=== PATIENT | male | born 1970 | race Caucasian/White ===

== ENCOUNTER 2019-04-27 11:21 | Outpatient (CLI) | payer OTHER, SELFPAY ==
[2019-04-27 11:38] LABS: Basophils Percent Auto 0.3 % (0.2-1.2); Eosinophils Absolute Auto 0.1 K/mm3 (0-0.3); Eosinophils Percent Auto 1.3 % (0-4.4); Lymphocytes Absolute Auto 1.57 K/mm3 (0.9-3.2); Lymphocytes Percent Auto 40.2 % (18.3-44.2); Mean Corpuscular HGB Conc 33.3 g/dl (32-36); Mean Corpuscular Hemoglobin 29.2 pg (26-34); Mean Corpuscular Volume 87.5 fl (80-100); Mean Platelet Volume 9.8 fl (7.4-10.4); Monocytes Absolute Auto 0.2 K/mm3 (0.1-0.6); Monocytes Percent Auto 6.1 % (2.6-8.5); Neutrophils Percent Auto 52.1 % (45.5-73.1); Platelet Count Result 150 k/mm3 (150-375); Red Blood Count 5.14 M/mm3 (4.6-6.20); Red Cell Distribution Width 12.8 % (11.5-14.5); White Blood Count 3.9 K/mm3 (4.5-10.0)
[2019-04-27 11:54] LABS: Alanine Aminotransferase 18 U/L (4-50); Albumin Level 4.8 g/dL (3.5-5.1); Alkaline Phosphatase 63 U/L (38-126); Aspartate Amino Transferase 26 U/L (17-59); Bilirubin,Total 1.7 mg/dL (0.2-1.3); Blood Urea Nitrogen 16 mg/dL (9-20); Calcium 9.7 mg/dL (8.4-10.2); Carbon Dioxide 31 mmol/L (22-30); Chloride 98 mmol/L (98-107); Cholesterol 195 mg/dL (0-200); Estimated Glomerular Filt Rate > 60; Glucose 93 mg/dL (75-110); HDL Direct 52 mg/dL; Potassium 4.3 mmol/L (3.4-5.0); Sodium 142 mmol/L (137-145); Triglycerides 94 mg/dL (<150)
[2019-04-27 12:10] LABS: LDL Cholesterol Direct 108 mg/dL
[2019-04-27 13:53] LABS: Prostate Specific Antigen 1.6 ng/mL (< OR = 4.0)
== END 2019-04-27 11:22 | disposition home or self-care (01) ==
PROVIDERS: PCP Family Medicine; Visit Provider Family Medicine
DX: Z12.5 Encounter for screening for malignant neoplasm of prostate (principal); K21.9 Gastro-esophageal reflux disease without esophagitis; D69.6 Thrombocytopenia, unspecified; E78.5 Hyperlipidemia, unspecified
CPT/HCPCS: 36415; 80053; 80061; 84153; 85025; G0103

== ENCOUNTER 2019-05-11 09:28 | Outpatient (CLI) | payer OTHER, SELFPAY ==
[2019-05-11 10:15] LABS: Hemoglobin 14.4 g/dL (14.0-18.0); Mean Corpuscular HGB Conc 34.3 g/dl (32-36); Mean Corpuscular Hemoglobin 29.6 pg (26-34); Mean Corpuscular Volume 86.4 fl (80-100); Mean Platelet Volume 9.6 fl (7.4-10.4); Platelet Count Result 145 k/mm3 (150-375); Red Blood Count 4.86 M/mm3 (4.6-6.20); Red Cell Distribution Width 12.6 % (11.5-14.5); White Blood Count 3.7 K/mm3 (4.5-10.0)
[2019-05-11 10:21] LABS: Alanine Aminotransferase 21 U/L (4-50); Albumin Level 4.3 g/dL (3.5-5.1); Alkaline Phosphatase 54 U/L (38-126); Aspartate Amino Transferase 25 U/L (17-59); Bilirubin,Total 1.2 mg/dL (0.2-1.3)
== END 2019-05-11 09:29 | disposition home or self-care (01) ==
LOC: ANHLAB 09:29
PROVIDERS: PCP Family Medicine; Visit Provider Physician Assistant Medical
DX: D64.9 Anemia, unspecified (principal); R17 Unspecified jaundice
CPT/HCPCS: 36415; 80076; 85027

== ENCOUNTER 2019-10-18 14:26 | Outpatient (CLI) | payer OTHER, SELFPAY ==
[2019-10-18 14:47] LABS: Basophils Percent Auto 0.4 % (0.2-1.2); Eosinophils Absolute Auto 0.1 K/mm3 (0-0.3); Eosinophils Percent Auto 1.2 % (0-4.4); Hematocrit 41.2 % (42.0-52.0); Hemoglobin 14.2 g/dL (14.0-18.0); Immature Granulocyte Absolute 0.02 K/mm3 (0.00-0.031); Immature Granulocyte Percent A 0.4 % (0-0.5); Lymphocytes Absolute Auto 1.46 K/mm3 (0.9-3.2); Lymphocytes Percent Auto 28.9 % (18.3-44.2); Mean Corpuscular HGB Conc 34.5 g/dl (32-36); Mean Corpuscular Hemoglobin 30.3 pg (26-34); Mean Platelet Volume 9.5 fl (7.4-10.4); Monocytes Absolute Auto 0.3 K/mm3 (0.1-0.6); Monocytes Percent Auto 5.9 % (2.6-8.5); Neutrophils Absolute Auto 3.2 K/mm3 (1.3-6.7); Neutrophils Percent Auto 63.2 % (45.5-73.1); Platelet Count Result 138 k/mm3 (150-375); Red Blood Count 4.68 M/mm3 (4.6-6.20); Red Cell Distribution Width 13.3 % (11.5-14.5); White Blood Count 5.1 K/mm3 (4.5-10.0)
[2019-10-18 15:01] LABS: Alanine Aminotransferase 16 U/L (4-50); Albumin Level 4.5 g/dL (3.5-5.1); Alkaline Phosphatase 59 U/L (38-126); Anion Gap 10.3 mmol/L (7-16); Aspartate Amino Transferase 27 U/L (17-59); Bilirubin,Total 1.7 mg/dL (0.2-1.3); Blood Urea Nitrogen 14 mg/dL (9-20); Calcium 9.2 mg/dL (8.4-10.2); Carbon Dioxide 27 mmol/L (22-30); Chloride 104 mmol/L (98-107); Estimated Glomerular Filt Rate > 60; Glucose 100 mg/dL (75-110); Potassium 4.3 mmol/L (3.4-5.0); Sodium 137 mmol/L (137-145)
== END 2019-10-18 14:27 | disposition home or self-care (01) ==
LOC: ANHLAB 14:27
PROVIDERS: PCP Family Medicine; Visit Provider Family Medicine
DX: D64.9 Anemia, unspecified (principal); F41.9 Anxiety disorder, unspecified
CPT/HCPCS: 36415; 80053; 84443; 85025

== ENCOUNTER 2020-04-27 13:31 | Outpatient (CLI) | payer OTHER, SELFPAY ==
[2020-04-27 13:51] LABS: Basophils Percent Auto 0.3 % (0.2-1.2); Eosinophils Absolute Auto 0.1 K/mm3 (0-0.3); Eosinophils Percent Auto 1.6 % (0-4.4); Hematocrit 41.5 % (42.0-52.0); Hemoglobin 14.6 g/dL (14.0-18.0); Immature Granulocyte Absolute 0.01 K/mm3 (0.00-0.031); Immature Granulocyte Percent A 0.3 % (0-0.5); Lymphocytes Percent Auto 33.7 % (18.3-44.2); Mean Corpuscular HGB Conc 35.2 g/dl (32-36); Mean Corpuscular Hemoglobin 30.4 pg (26-34); Mean Corpuscular Volume 86.5 fl (80-100); Mean Platelet Volume 9.4 fl (7.4-10.4); Monocytes Absolute Auto 0.3 K/mm3 (0.1-0.6); Monocytes Percent Auto 6.7 % (2.6-8.5); Neutrophils Absolute Auto 2.2 K/mm3 (1.3-6.7); Neutrophils Percent Auto 57.4 % (45.5-73.1); Platelet Count Result 130 k/mm3 (150-375); Red Cell Distribution Width 12.3 % (11.5-14.5); White Blood Count 3.9 K/mm3 (4.5-10.0)
[2020-04-27 14:05] LABS: Alanine Aminotransferase 16 U/L (4-50); Albumin Level 4.5 g/dL (3.5-5.1); Alkaline Phosphatase 52 U/L (38-126); Anion Gap 5 mmol/L (8-16); Aspartate Amino Transferase 28 U/L (17-59); Bilirubin,Total 1.4 mg/dL (0.2-1.3); Blood Urea Nitrogen 20 mg/dL (9-20); Calcium 9.4 mg/dL (8.4-10.2); Carbon Dioxide 31 mmol/L (22-30); Chloride 104 mmol/L (98-107); Estimated Glomerular Filt Rate > 60; Glucose 99 mg/dL (75-110); Potassium 4.5 mmol/L (3.4-5.0); Sodium 140 mmol/L (137-145)
[2020-04-27 14:34] LABS: Prostate Specific Antigen 0.9 ng/mL (< OR = 4.0)
== END 2020-04-27 13:32 | disposition home or self-care (01) ==
PROVIDERS: PCP Family Medicine; Visit Provider Family Medicine
DX: E78.5 Hyperlipidemia, unspecified (principal); D64.9 Anemia, unspecified
CPT/HCPCS: 36415; 80053; 84153; 85025; G0103

== ENCOUNTER 2021-05-01 08:49 | Outpatient (CLI) | payer OTHER, SELFPAY ==
[2021-05-01 09:16] LABS: Hematocrit 39.8 % (42.0-52.0); Hemoglobin 13.6 g/dL (14.0-18.0); Mean Corpuscular HGB Conc 34.2 g/dl (32-36); Mean Corpuscular Hemoglobin 29.4 pg (26-34); Mean Corpuscular Volume 86.1 fl (80-100); Mean Platelet Volume 9.4 fl (7.4-10.4); Platelet Count Result 164 k/mm3 (150-375); Red Blood Count 4.62 M/mm3 (4.6-6.20); Red Cell Distribution Width 13.2 % (11.5-14.5); White Blood Count 4.2 K/mm3 (4.5-10.0)
[2021-05-01 09:27] LABS: Anion Gap 8 mmol/L (8-16); Blood Urea Nitrogen 21 mg/dL (9-20); Carbon Dioxide 30 mmol/L (22-30); Chloride 104 mmol/L (98-107); Cholesterol 210 mg/dL (0-200); Estimated Glomerular Filt Rate > 60; Glucose 89 mg/dL (65-110); HDL Direct 56 mg/dL; Potassium 4.3 mmol/L (3.4-5.0); Sodium 142 mmol/L (137-145); Triglycerides 104 mg/dL (<150)
[2021-05-01 09:37] LABS: LDL Cholesterol Direct 103 mg/dL
[2021-05-01 09:57] LABS: Prostate Specific Antigen 0.9 ng/mL (< OR = 4.0)
[2021-05-01 13:16] LABS: Basophils Percent Auto 0.5 % (0.2-1.2); Eosinophils Absolute Auto 0.1 K/mm3 (0-0.3); Eosinophils Percent Auto 2.8 % (0-4.4); Immature Granulocyte Absolute 0.01 K/mm3 (0.00-0.031); Immature Granulocyte Percent A 0.2 % (0-0.5); Lymphocytes Absolute Auto 1.55 K/mm3 (0.9-3.2); Lymphocytes Percent Auto 36.6 % (18.3-44.2); Monocytes Absolute Auto 0.3 K/mm3 (0.1-0.6); Monocytes Percent Auto 6.9 % (2.6-8.5); Neutrophils Absolute Auto 2.2 K/mm3 (1.3-6.7)
== END 2021-05-01 08:50 | disposition home or self-care (01) ==
LOC: ANHLAB 08:51
PROVIDERS: PCP Family Medicine; Visit Provider Family Medicine
DX: Z12.5 Encounter for screening for malignant neoplasm of prostate (principal); I10 Essential (primary) hypertension; Z13.220 Encounter for screening for lipoid disorders; E78.5 Hyperlipidemia, unspecified; D64.9 Anemia, unspecified
CPT/HCPCS: 36415; 80048; 80061; 84153; 84443; 85025; 85027; G0103

== ENCOUNTER 2021-06-11 01:41 | Day surgery (SDC) | payer OTHER, SELFPAY ==
[2021-05-31 10:43] VITALS: BMI 28.4
[2021-06-11 11:51] VITALS: BP 108/70; PULSE 117; RESP 16; TEMP 36.4; O2SAT 97; BMI 27.5
[2021-06-11] MEDS: LACTATED RINGERS 1,000 ML 150 ML IV CONT (11:54)
--- NOTE | 2021-06-11 12:51 | WPDANESEPPF ---
Anes - Initial Pre Proc Eval Procedure: Operation Date: 06/11/21 13:00 Proposed Procedures p Screening Colonoscopy - Yobany Butcher MD Date/Time: 06/11/21 12:51 Surgeon: Yobany Butcher MD Pre Op Diagnosis: neoplasm screening Patient Data Age: 50 Gender: M Height: 1.85 m Weight: 94.6 kg Last Vital Signs Temp 97.6 F 06/11/21 11:51 Pulse 117 H 06/11/21 11:51 Resp 16 06/11/21 11:51 BP 108/70 06/11/21 11:51 Pulse Ox 97 06/11/21 11:51 Allergies Allergy/AdvReac Type Severity Reaction Status Date / Time No Known Allergies Allergy Verified 06/11/21 11:48 Home Medications Medication Instructions Recorded Confirmed Type meloxicam 7.5 mg tablet 15 mg PO DAILY #60 tablet 04/26/21 06/11/21 Rx metoprolol succinate 50 mg 50 mg PO DAILY #30 tablet 04/30/21 06/11/21 Rx tablet,extended release 24 hr Patient hx anesthesia problems: none Family hx anesthesia problems: none Results Review: All pre-operative results and documents have been reviewed as part of the pre-operative evaluation. [facility] Past Medical History Medical History (Updated 04/30/21 @ 12:49 by Camacho Fountain MD) Anxiety disorder, unspecified BMI 28.0-28.9,adult Essential hypertension Family History Family History Sibling Patient's brother is in good health Grandparent Family history of malignant neoplasm of breast Other Cerebrovascular accident Hypertension Social History Social History Smoking status: Never smoker Alcohol intake: current Alcohol use details: once a week Substance use: never Substance use type: does not use Living arrangements: with family Spiritual care concerns: No Anes - Eval Final PreProcedure Day of Procedure 06/11/21 12:51 Patient weight: normal Heart: regular rate and rhythm Lungs: clear to auscultation Airway: Mallampati scale class II Neurological: alert and oriented Last oral intake: >/= 8 hours ASA classification: II Emergent: no Anesthetic plan: proceed Anesthesia type and monitoring: general GIVS and standard monitoring Results Review: All pre-operative results and documents have been reviewed as part of the pre-operative evaluation. Informed Consent: The patient's anesthetic plan and its attendant risks and benefits were discussed with the patient/family/POA. Questions were solicited and answers provided to the satisfaction of the patient/family/POA.
--- NOTE | 2021-06-11 13:05 | PM.HPGS ---
History of Present Illness History of Present Illness Consent: Risks, benefits, and alternatives have been discussed and questions answered. Patient agrees to proceed with procedure. Chief complaint: neoplasm screening Narrative: Jai Kahn is a 50 year old male here for first screening colonoscopy Review of Systems Constitutional: Constitutional: Denies headache(s) and Denies weakness Eyes: Eyes: Denies blurry vision ENT: Reports Normal hearing present, Denies headache(s) and Denies neck pain Cardiovascular: Cardiovascular: Denies chest pain and Denies dyspnea Respiratory: Respiratory: Denies dyspnea Gastrointestinal: Gastrointestinal: Reports no additional gastrointestinal complaints Genitourinary: Genitourinary: Denies dysuria Musculoskeletal: Musculoskeletal: Denies neck pain Integumentary/Breasts: Skin/Breast: Denies dry skin Neurologic: Reports Normal hearing present, Denies headache(s) and Denies weakness Psychiatric: Psychiatric: Denies anxiety Endocrine: Endocrine: Denies change in body appearance Hematologic/Lymphatic: Hematologic/Lymphatic: Denies easy bleeding Allergic/Immunologic: Allergic/Immunologic: Denies urticaria PMF Past Medical History Medical History (Updated 06/11/21 @ 13:06 by Yobany Butcher MD) Anxiety disorder, unspecified BMI 28.0-28.9,adult Colon cancer screening Essential hypertension Family History Family History Sibling Patient's brother is in good health Grandparent Family history of malignant neoplasm of breast Other Cerebrovascular accident Hypertension Social History Social History Smoking status: Never smoker Alcohol intake: current Alcohol use details: once a week Substance use: never Substance use type: does not use Living arrangements: with family Spiritual care concerns: No Meds Home Medications and Allergies Home Medications Medication Instructions Recorded Confirmed Type meloxicam 7.5 mg tablet 15 mg PO DAILY #60 tablet 04/26/21 06/11/21 Rx metoprolol succinate 50 mg 50 mg PO DAILY #30 tablet 04/30/21 06/11/21 Rx tablet,extended release 24 hr Allergies Allergy/AdvReac Type Severity Reaction Status Date / Time No Known Allergies Allergy Verified 06/11/21 11:48 Vital Signs Vital Signs - 24 hr 06/11/21 11:51 Temperature 97.6 F Pulse Rate 117 H Respiratory Rate 16 Blood Pressure 108/70 Pulse Oximetry 97 Exam Const: General: comfortable and no acute distress HENMT: General nose exam: Normal nares present Eyes: General: appearance normal, both eyes and all related structures Neck: Neck: no JVD Resp: Auscultation: clear to auscultation bilaterally Cardio: Rate: regular rate Rhythm: regular rhythm GI: Inspection: non-distended GI Palp: Yes Soft to palpation Skin: General skin exam: normal color Neuro: General: gait normal Speech: normal speech Extrem: General: normal to inspection Psych: Mental Status: mental status grossly normal Assessment and Plan Assessment and plan (1) Colon cancer screening: Code(s): Z12.11 - Encounter for screening for malignant neoplasm of colon Status: Acute Assessment and Plan: colonoscopy
[2021-06-11 13:21] VITALS: BP 103/55; PULSE 104; RESP 17; O2SAT 98
[2021-06-11 13:31] VITALS: BP 129/74; PULSE 96; RESP 20; O2SAT 99
== END 2021-06-11 13:50 | disposition home or self-care (01) ==
PROVIDERS: PCP Family Medicine; Visit Provider Internal Medicine Gastroenterology
PROC: 0DJD8ZZ Inspection of Lower Intestinal Tract, Via Natural or Artificial Opening Endoscopic (ICD-10-PCS; CPT 45378; principal; 2021-06-11 13:00)
DX: Z12.11 Encounter for screening for malignant neoplasm of colon (principal); K63.5 Polyp of colon; K64.8 Other hemorrhoids; F41.9 Anxiety disorder, unspecified; I10 Essential (primary) hypertension
CPT/HCPCS: 45380; 88305; J2704; J7120

== ENCOUNTER 2022-04-16 10:52 | Outpatient (CLI) | payer OTHER, SELFPAY ==
--- NOTE | ~2022-04-16 | XR_ITS ---
EXAMINATION: XR shoulder LT min 2V INDICATION: Left shoulder pain TECHNIQUE: Four views of the left shoulder are submitted. COMPARISON: None FINDINGS: Normal alignment. No fracture. Glenohumeral and acromioclavicular joint spaces are normal. Soft tissues are unremarkable. IMPRESSION: 1. No acute osseous abnormality. Reviewed, dictated and finalized at location L. MIC TILE SETTER
== END 2022-04-16 10:53 | disposition home or self-care (01) ==
PROVIDERS: PCP Family Medicine; Visit Provider Physician Assistant Medical
DX: M25.512 Pain in left shoulder (principal)
CPT/HCPCS: 73030

== ENCOUNTER 2022-05-01 07:35 | Outpatient (CLI) | payer OTHER, SELFPAY ==
[2022-05-01 19:48] LABS: Basophils Percent Auto 0.5 % (0.2-1.2); Eosinophils Absolute Auto 0.1 K/mm3 (0-0.3); Eosinophils Percent Auto 1.4 % (0-4.4); Hemoglobin 14.6 g/dL (14.0-18.0); Lymphocytes Absolute Auto 1.61 K/mm3 (0.9-3.2); Lymphocytes Percent Auto 36.8 % (18.3-44.2); Mean Corpuscular HGB Conc 33.2 g/dl (32-36); Mean Corpuscular Hemoglobin 29.3 pg (26-34); Mean Corpuscular Volume 88.4 fl (80-100); Mean Platelet Volume 10.1 fl (7.4-10.4); Monocytes Absolute Auto 0.3 K/mm3 (0.1-0.6); Monocytes Percent Auto 6.6 % (2.6-8.5); Neutrophils Absolute Auto 2.4 K/mm3 (1.3-6.7); Neutrophils Percent Auto 54.7 % (45.5-73.1); Platelet Count Result 152 k/mm3 (150-375); Red Blood Count 4.98 M/mm3 (4.6-6.20); Red Cell Distribution Width 13.3 % (11.5-14.5); White Blood Count 4.4 K/mm3 (4.5-10.0)
[2022-05-01 20:39] LABS: Erythrocyte Sedimentation Rate 3 mm/hr (0-20)
[2022-05-01 21:18] LABS: Alanine Aminotransferase 27 U/L (6-50); Albumin Level 4.7 g/dL (3.5-5.1); Alkaline Phosphatase 59 U/L (38-126); Anion Gap 6 mmol/L (8-16); Aspartate Amino Transferase 40 U/L (17-59); Bilirubin,Total 1.7 mg/dL (0.2-1.3); Blood Urea Nitrogen 13 mg/dL (9-20); Calcium 9.4 mg/dL (8.4-10.2); Carbon Dioxide 31 mmol/L (22-30); Chloride 103 mmol/L (98-107); Cholesterol 240 mg/dL (0-200); Estimated Glomerular Filt Rate > 60; Glucose 89 mg/dL (65-110); HDL Direct 60 mg/dL; Potassium 4.2 mmol/L (3.4-5.0); Sodium 140 mmol/L (137-145); Triglycerides 100 mg/dL (<150)
[2022-05-01 21:32] LABS: LDL Cholesterol Direct 123 mg/dL
[2022-05-01 21:49] LABS: Prostate Specific Antigen 0.5 ng/mL (< OR = 4.0)
== END 2022-05-01 07:36 | disposition home or self-care (01) ==
LOC: ANHBWCLAB 07:36
PROVIDERS: PCP Family Medicine; Visit Provider Family Medicine
DX: Z13.220 Encounter for screening for lipoid disorders (principal); Z12.5 Encounter for screening for malignant neoplasm of prostate; I10 Essential (primary) hypertension; E78.5 Hyperlipidemia, unspecified; R76.8 Other specified abnormal immunological findings in serum
CPT/HCPCS: 36415; 80048; 80061; 80076; 84153; 84443; 85025; 85652; G0103

== ENCOUNTER 2022-07-20 10:14 | Outpatient (CLI) | payer OTHER, SELFPAY ==
--- NOTE | ~2022-07-20 | MR_ITS ---
EXAMINATION: MR shoulder LT wo con DATE: 07/20/2022 11:17 INDICATION: Left shoulder pain. TECHNIQUE: Magnetic resonance imaging (MRI) of the left shoulder was performed without intravenous co ntrast. Sequences included axial PD-weighted FS FSE, coronal oblique PD-weighted FS FSE and T2-weight ed FS FSE, and sagittal oblique T2-weighted FS FSE and T1-weighted FSE. COMPARISON: Left shoulder radiographs 04/16/2022 FINDINGS: Coracoacromial arch: The acromion undersurface is curved in morphology (type II). There is mild acromioclavicular joint os teoarthritis. There is mild subacromial/subdeltoid bursitis. Rotator cuff: There is mild supraspinatus and infraspinatus tendinopathy. Teres minor tendon is normal. There is mi ld subscapularis tendinopathy. No tear. The rotator cuff muscle bellies are normal. Biceps tendon and glenoid labrum: Biceps tendon is in bicipital groove. Intra-articular biceps tendon is normal. The glenoid labrum is normal. Fluid: There is no glenohumeral joint effusion. Bones/cartilage: Humeral head cartilage is normal. Glenoid cartilage is normal. IMPRESSION: 1. Mild rotator cuff tendinopathy. No tear. 2. Mild acromioclavicular joint osteoarthritis. 3. Mild subacromial/subdeltoid bursitis. Reviewed, dictated and finalized at location A.
== END 2022-07-20 10:15 | disposition home or self-care (01) ==
PROVIDERS: PCP Family Medicine; Visit Provider Nurse Practitioner Family
DX: M19.012 Primary osteoarthritis, left shoulder (principal); M75.52 Bursitis of left shoulder
CPT/HCPCS: 73221

== ENCOUNTER 2023-03-03 00:11 | Day surgery (SDC) | payer OTHER, SELFPAY ==
[2023-02-26 16:28] VITALS: BMI 27.0
--- NOTE | 2023-02-26 16:32 | SUR.PREOP ---
Report to the Outpatient Waiting Room, entrance under the green pavilion located off [facility], at time 1130 on date 03/03/23. Planned Procedure Time: _1330_. Time changes happen often and if your time is changed the preop area will call you the afternoon before. - You and your visitor will be asked to self-screen and do not enter if you have any COVID symptoms. - A mask is optional within the hospital at this time. Patients may have clear liquids (water, carbonated beverages, clear teas, apple juice) until 3 hours prior to surgery with a maximum of 20 ounces. - No food from midnight until time of surgery BEFORE 1030 AM - Infants may have breast milk until 4 hours before surgery, formula 6 hours prior to surgery. - Children will be allowed to drink immediately following surgery. If applicable, please bring a bottle or sippy cup to assist with drinking. Juice, water, soda, and popsicles are readily available. For infants on formula, please bring formula the day of surgery. Pacifiers are allowed. Take the following medications with a SIP of water the morning of surgery: _NO MEDS____ DO NOT STOP ANY OF YOUR OTHER PRESCRIPTION MEDICATIONS PRIOR TO SURGERY ?EXCEPT THE FOLLOWING Medications to discontinue per physician _MELOXICAM HELD 02/25 PER SURGEON. HOLD PRILOSEC AND ZYRTEC MORNING OF SURGERY Date to take last dose Please no make-up, nail south korean, hairspray, perfume, deodorant, or body powder the day of surgery. No jewelry (including any body piercings) or valuables the day of surgery, leave them at home. Please take a shower or bath the night before, or the morning of, surgery with an antibacterial soap. Wear comfortable, loose fitting clothing. Children are encouraged to wear pajamas. - Jewelry must be removed prior to entering the operating room. Rings and piercings that are not removed may be cut off. - The hospital will not accept responsibility for valuables. - Please leave all valuables, including medications, at home the day of surgery. If you are going home after surgery, a licensed pile driver operator must drive you home. - NO public transportation without another adult if you receive anesthesia. - We recommend that an adult stay with you for 24 hours following discharge. - We also recommend that you do not drive, make important decision, drink alcoholic beverages, or take any drugs that were not prescribed by your health care provider for at least 24 hours after your discharge time. For Pediatric surgeries, we recommend two adults accompany the child home. Follow any additional instructions given to you from your surgeon. If you or anyone in your household have experienced Covid symptoms in the past week, please notify your surgeon or the nurse liaison at the phone number below for possible testing. Telephone instructions given to _PATIENT__and asked if any additional questions and then verbalized understanding. Patient advised to call surgeon office or pre surgery nurse liaison [phone] if any additional questions.
[2023-03-03] VITALS (7 sets, daily range): BP systolic 116–125; BP diastolic 68–79; PULSE 71–93; RESP 12–17; TEMP 36.1–36.9; O2SAT 95–100
--- NOTE | 2023-03-03 10:00 | WPDHPUPDATE1 ---
History and Physical Update Update Date/Time: 03/03/23 10:00 History and Physical has been reviewed, including an updated exam of the patient. There are NO changes in the patient's condition. Risks, benefits, and alternatives have been discussed and questions answered. Patient agrees to proceed with procedure.
--- NOTE | 2023-03-03 11:48 | WPDANESEPPF ---
Anes - Initial Pre Proc Eval Procedure: Operation Date: 03/03/23 13:30 Proposed Procedures p Left Shoulder Arthroscopic Subacromial Decompression, Possible Rotator Cuff Repair - Marlon Herring MD Date/Time: 03/03/23 11:48 Surgeon: Marlon Herring MD Pre Op Diagnosis: Lt Shoulder Rot Cuff [place] Patient Data Age: 52 Gender: M Height: 1.85 m Weight: 92.99 kg Allergies Allergy/AdvReac Type Severity Reaction Status Date / Time No Known Allergies Allergy Verified 02/20/23 14:49 Home Medications Medication Instructions Recorded Confirmed Type cetirizine 10 mg capsule (Zyrtec) 10 mg PO DAILY PRN Allergy Symptoms 04/30/22 02/26/23 History fluticasone propionate 50 2 spray intranasal DAILY 04/30/22 02/26/23 History mcg/actuation nasal spray,suspension meloxicam 7.5 mg tablet 15 mg PO DAILY #180 tabs 07/04/22 02/26/23 Rx omeprazole 20 mg capsule,delayed 20 mg PO DAILY PRN reflux 02/26/23 02/26/23 History release oxycodone-acetaminophen 5 mg-325 1 - 2 tablet PO Q4-6H PRN pain #30 03/03/23 Rx mg tablet tabs Patient hx anesthesia problems: none Family hx anesthesia problems: none Results Review: All pre-operative results and documents have been reviewed as part of the pre-operative evaluation. [facility] Past Medical History Medical History (Updated 03/03/23 @ 07:27 by EDIN Blackburn) Anxiety disorder, unspecified BMI 26.0-26.9,adult Colon cancer screening Essential hypertension Surgical History Surgical History (Updated 03/03/23 @ 11:49 by Moose Yang MD) H/O colonoscopy Family History Family History Sibling Patient's brother is in good health Grandparent Family history of malignant neoplasm of breast Other Cerebrovascular accident Hypertension Social History Social History Smoking status: Never smoker Alcohol intake: current Drinks per week: 1 Alcohol use details: once a week Substance use: never Substance use type: does not use Lack of Transportation: No Lack of Food: Never True Current Housing: I Have Housing Concerned About Future Housing: No Difficulty Paying Gas/Electric Bills: No Difficulty Paying for Meds: No Currently Unemployed: No Education: Associate Degree Difficulty w/ Childcare or Family Care: No Living arrangements: with family Spiritual care concerns: No Anes - Eval Final PreProcedure Day of Procedure 03/03/23 11:48 Patient weight: overweight Heart: regular rate and rhythm Lungs: clear to auscultation Airway: Mallampati scale class II Neurological: alert and oriented Last oral intake: >/= 8 hours ASA classification: II Emergent: no Anesthetic plan: proceed Anesthesia type and monitoring: general ETT and standard monitoring Results Review: All pre-operative results and documents have been reviewed as part of the pre-operative evaluation. Informed Consent: The patient's anesthetic plan and its attendant risks and benefits were discussed with the patient/family/POA. Questions were solicited and answers provided to the satisfaction of the patient/family/POA.
[2023-03-03] MEDS: LACTATED RINGERS 1,000 ML 30 ML IV CONT ×2 (12:00→14:05)
--- NOTE | 2023-03-03 12:10 | WPDANESPNB ---
Anes - Peripheral Nerve Block Date/Time: 03/03/23 12:10 I have discussed with the patient/family/POA the placement of a peripheral nerve block for post-operative pain management, including associated risks, benefits, complications, and side effects. Alternative methods of post-operative analgesia were detailed. Questions were solicited and answers provided to the satisfaction of the patient/family/POA. Time-Out: A pre-procedural Time-Out was completed immediately before starting the procedure and confirmed: Patient Identification, Site, Procedure, Patient Position and the Availability of Requisite Equipment. Clinical Indications: Acute post-operative pain management requested by the operative surgeon. Nerve Block Insertion Note Anes-nerve block: interscalene left Patient position: supine Skin prep: chlorhexidine Needle: 22 gauge, stimulating, insulated echogenic needle. Needle length: 50 mm Technique: ultrasound Injectate: bupivacaine 0.5% with epi 5 mcg/ml (30cc) and dexamethasone (mg) (8) Observations: tolerated well Complications: none Procedure start time:: 1205 Procedure end time:: 1210
[2023-03-03] MEDS: KETOROLAC 15 MG/ML VIAL (*BKC) IV PUSH (12:18)
[2023-03-03] MEDS: ACETAMINOPHEN 500 MG TABLET 1000 MG PO (12:18)
[2023-03-03] MEDS: ceFAZolin 2 GM/D5W 50 ML 2 GM/50 ML BAG IVPB (13:00)
--- NOTE | 2023-03-03 13:54 | P.OP_ITS ---
Procedure Note - Detailed Date of Procedure 03/03/23 Pre-op Diagnosis Lt Shoulder Rot Cuff Tendonitis Post-op Diagnosis Other (Left shoulder 1. Low grade rotator cuff tear 2. Degenerative labral tear 3. Impingement syndrome) Procedure Performed Left shoulder 1. Arthroscopic rotator cuff and labral debridement 2. Arthroscopic subacromial decompression Surgeon Marlon Herring MD Cardiovascular Radiologic Technologist Sandy Grider PA-C Anesthesia General and Regional ( interscalene block) Findings Low grade articular and bursal supraspinatus tears. Degenerative SLAP tear without biceps instability. Moderate capsulitis without notable contracture. Description of Procedure Patient was given an interscalene block in the holding area. Preoperative antibiotics were given. The patient was brought to the operating room. Careful positioning in the beach chair was accomplished. The head and neck were carefully positioned. A small bump was placed under the left shoulder. The shoulder was examined. There was mild loss of elevation. The shoulder was pr epped and draped in the usual sterile fashion. Standard posterior and anterior arthroscopic portals were established. The shoulder was inspected. The superior labrum had mild degenerative tearing without any significant disruption of the integrity of the labrum and biceps. The biceps had some hyperemia when pulled into the joint but mostly appeared normal. There was no instability. The subscapularis was normal. The anterior and inferior capsule did show significant hyperemia but no marked or definite contracture. The glenohumeral joint despite tended well. The anterior supraspinatus had very low-grade less than 15% tearing. This was lightly debrided as was the labrum. Attention was turned to the subacromial space. The bursa was fairly thickened. There were a few notable bands. A complete bursectomy was performed. The bursal side rotator cuff was previously marked with a spinal needle and PDS suture. The area did show low-grade bursal tearing without any significant disruption of the integrity of the tendon itself. Light debridement was performed. The acromion was clearly visualized. There was some prominence at the anterolateral aspect. The coracoacromial ligament was released. Careful acromioplasty was performed utilizing views from both lateral and posterior. Loose bone fragments were carefully irrigated from the joint. The arthroscopic instruments were removed. The wounds were closed with interrupted 4-0 Monocryl suture followed by Steri- Strips. A sterile dressing was applied with a sling. The patient was extubated and brought to the recovery room in stable condition. There were no complications. Physician licensed physical therapy assistant, Sandy Grider PA-C, required for surgery; including patient positioning, draping, arthroscopic camera operation, maintaining instrument position, wound closure, and dressing and sling placement. Estimated Blood Loss 10 Pathology None sent Complications No immediate complications Condition Stable Disposition PACU [facility] Billing Surgery - Charge Forward: Surgery Billing
[2023-03-03] MEDS: ONDANSETRON INJ 4 MG/2 ML VIAL IV PUSH (14:25)
[2023-03-03] MEDS: SCOPOLAMINE 1 MG PATCH 1 PATCH TRANSDERM (15:14)
== END 2023-03-03 15:42 | disposition home or self-care (01) ==
PROVIDERS: PCP Family Medicine; Visit Provider Orthopaedic Surgery
PROC: (CPT 29805; principal; 2023-03-03 13:30)
DX: M75.102 Unspecified rotator cuff tear or rupture of left shoulder, not specified as traumatic (principal); M75.42 Impingement syndrome of left shoulder; M75.82 Other shoulder lesions, left shoulder; G89.18 Other acute postprocedural pain
CPT/HCPCS: 29826; 29822; 64415; A9270; J0690; J1100; J1170; J1885; J2250; J2371; J2405; J2704; J3010; J7120

== ENCOUNTER 2023-05-14 09:41 | Outpatient (CLI) | payer BC, SELFPAY ==
[2023-05-14 10:25] LABS: Hematocrit 42.4 % (42.0-52.0); Hemoglobin 14.2 g/dL (14.0-18.0); Mean Corpuscular HGB Conc 33.5 g/dl (32-36); Mean Corpuscular Hemoglobin 29.7 pg (26-34); Mean Corpuscular Volume 88.7 fl (80-100); Mean Platelet Volume 9.6 fl (7.4-10.4); Platelet Count Result 139 k/mm3 (150-375); Red Blood Count 4.78 M/mm3 (4.6-6.20); Red Cell Distribution Width 12.6 % (11.5-14.5); White Blood Count 3.7 K/mm3 (4.5-10.0)
[2023-05-14 10:38] LABS: Alanine Aminotransferase 17 U/L (6-50); Albumin Level 4.4 g/dL (3.5-5.1); Alkaline Phosphatase 48 U/L (38-126); Anion Gap 4 mmol/L (8-16); Aspartate Amino Transferase 27 U/L (17-59); Blood Urea Nitrogen 17 mg/dL (9-20); Calcium 9.9 mg/dL (8.4-10.2); Carbon Dioxide 32 mmol/L (22-30); Chloride 105 mmol/L (98-107); Cholesterol 203 mg/dL (0-200); Estimated Glomerular Filt Rate 58; Glucose 95 mg/dL (65-110); HDL Direct 59 mg/dL; Potassium 4.4 mmol/L (3.4-5.0); Sodium 141 mmol/L (137-145); Triglycerides 76 mg/dL (<150)
[2023-05-14 10:49] LABS: LDL Cholesterol Direct 107 mg/dL
[2023-05-14 11:09] LABS: Prostate Specific Antigen 1.2 ng/mL (< OR = 4.0)
[2023-05-14 11:50] LABS: Hepatitis B Surface Antigen Negative (Negative)
[2023-05-14 11:55] LABS: HAV RESULT Negative (Negative); Hepatitis B Core IgM Result Negative (Negative)
[2023-05-14 12:07] LABS: Hepatitis C Virus Antibody Negative (Negative)
== END 2023-05-14 09:42 | disposition home or self-care (01) ==
LOC: ANHLAB 09:43
PROVIDERS: PCP Family Medicine; Visit Provider Family Medicine
DX: E78.5 Hyperlipidemia, unspecified (principal); I10 Essential (primary) hypertension; D64.9 Anemia, unspecified; K21.9 Gastro-esophageal reflux disease without esophagitis; Z13.220 Encounter for screening for lipoid disorders; Z12.5 Encounter for screening for malignant neoplasm of prostate
CPT/HCPCS: 36415; 80048; 80061; 80074; 80076; 82607; 82728; 84153; 84443; 85027; G0103

== ENCOUNTER 2024-05-19 07:16 | Outpatient (CLI) | payer BC, SELFPAY ==
--- OUTSIDE RECORDS SUMMARY | 2024-05-19 07:18 | XMS_ITS | Clinical Summary ---
Author Organization [facility] Address [address] [place] [address] Care Team Providers Care Hydraulic Boom Operator Name Role Phone Francis Pike MD Primary Care Provider [phone] Allergies No known active allergies Medications cetirizine (ZyrTEC) 10 mg tablet Take 10 mg by mouth daily. Active fluticasone (FLONASE) 50 mcg/spray [place], Suspension Administer 2 Sprays in each nostril daily. Active raNITIdine (ZANTAC) 150 mg tablet Take 150 mg by mouth 1 time daily as needed for Indigestion. Active ACETAMINOPHEN (TYLENOL EXTRA STRENGTH ORAL) Take 500 mg by mouth every 6 hours as needed for Pain or Temperature. Active omeprazole (PriLOSEC) 40 mg Capsule, Delayed Release(E.C.) Take 20 mg by mouth daily . Active simethicone 125 mg Tablet, Chewable Take 125 mg by mouth 1 time daily as needed for Gas. Active meloxicam (MOBIC) 15 mg tablet TK 1 T PO QAM PRF JOINT PAIN 6 7 Active gabapentin (NEURONTIN) 300 mg capsule TK 2 CS PO QD HS FOR DRYING OVEN TENDER 2 7 Active Active Problems Problem Noted Date Diagnosed Date Pancytopenia 10/30/2016 Family History Medical History Relation Name Comments Healthy Brother 1 Healthy Brother 2 Cancer Father Other Father Healthy Mother Relation Name Status Comments Brother 1 Alive Brother 2 Alive Father Alive Mother Alive Social History Tobacco Use Types Packs/Day Years Used Date Smoking Tobacco: Never Smokeless Tobacco: Never Alcohol Use Standard Drinks/Week Comments Yes 0 (1 standard drink = 0.6 oz pur e alcohol) occasional Sex and Gender Information Value Date Recorded Sex Assigned at Not on file Legal Sex Male 8:58 AM CDT Gender Identity Not on file Sexual Orientation Not on file Last Filed Vital Signs Vital Sign Reading Time Taken Comments Blood Pressure 120/76 03/03/2017 10:46 AM JOURNEYMAN ELECTRICIAN Pulse 54 03/03/2017 10:46 AM JOURNEYMAN ELECTRICIAN Temperature 36.6 C (97.8 F) 03/03/2017 10:46 AM JOURNEYMAN ELECTRICIAN Respiratory Rate 16 11/08/2016 10:36 AM CDT Oxygen Saturation 98% 03/03/2017 10:46 AM JOURNEYMAN ELECTRICIAN Inhaled Oxygen Concentration - - Weight 94.8 kg (209 lb) 03/03/2017 10:46 AM JOURNEYMAN ELECTRICIAN Height 185.4 cm (6' 1) 03/03/2017 10:46 AM JOURNEYMAN ELECTRICIAN Body Mass Index 27.57 03/03/2017 10:46 AM JOURNEYMAN ELECTRICIAN Plan of Treatment Health Maintenance Due Date Last Done Comments DTAP/TDAP/TD VACCINES (1 - Tdap) 1989 HEPATITIS B VACCINES (1 of 3 - 19+ 3-dose series) 11/16 COLORECTAL SCREENING 12/10/2015 Colorectal Cancer Screening 12/10/2015 FIT-DNA Q 3 years 12/10/2015 FIT/FOBT Q 1 year 12/10/2015 Flex Sig/CT Colonography Q 5 years 12/10/2015 ZOSTER VACCINE (1 of 2) 2020 INFLUENZA VACCINE (#1) 2023 Insurance [facility] [employer] PPO [id number] Care Teams Hydraulic Boom Operator Relationship Specialty Start Date End Date Francis Pike MD [address] [place] [id number] PCP - General Internal Medicine 10/30/16
[2024-05-19 08:09] LABS: Basophils Percent Auto 0.6 % (0.2-1.2); Eosinophils Absolute Auto 0.1 K/mm3 (0-0.3); Eosinophils Percent Auto 1.7 % (0-4.4); Hematocrit 41.6 % (42.0-52.0); Hemoglobin 14.1 g/dL (14.0-18.0); Lymphocytes Absolute Auto 1.38 K/mm3 (0.9-3.2); Lymphocytes Percent Auto 38.9 % (18.3-44.2); Mean Corpuscular HGB Conc 33.9 g/dl (32-36); Mean Corpuscular Hemoglobin 29.8 pg (26-34); Mean Corpuscular Volume 87.9 fl (80-100); Mean Platelet Volume 9.6 fl (7.4-10.4); Monocytes Absolute Auto 0.2 K/mm3 (0.1-0.6); Monocytes Percent Auto 6.8 % (2.6-8.5); Neutrophils Absolute Auto 1.9 K/mm3 (1.3-6.7); Platelet Count Result 148 k/mm3 (150-375); Red Blood Count 4.73 M/mm3 (4.6-6.20); Red Cell Distribution Width 12.3 % (11.5-14.5); White Blood Count 3.6 K/mm3 (4.5-10.0)
[2024-05-19 08:25] LABS: Alanine Aminotransferase 20 U/L (6-50); Albumin Level 4.3 g/dL (3.5-5.1); Alkaline Phosphatase 45 U/L (38-126); Anion Gap 6 mmol/L (4-12); Aspartate Amino Transferase 26 U/L (17-59); Bilirubin,Total 1.7 mg/dL (0.2-1.3); Blood Urea Nitrogen 27 mg/dL (9-20); Calcium 9.6 mg/dL (8.4-10.2); Carbon Dioxide 32 mmol/L (22-30); Chloride 103 mmol/L (98-107); Cholesterol 194 mg/dL (0-200); Estimated Glomerular Filt Rate > 60; Glucose 96 mg/dL (65-110); HDL Direct 62 mg/dL; Potassium 4.3 mmol/L (3.4-5.0); Sodium 141 mmol/L (137-145); Triglycerides 66 mg/dL (<150)
[2024-05-19 08:37] LABS: LDL Cholesterol Direct 91 mg/dL
[2024-05-19 08:38] LABS: Iron 132 ug/dL (49-181)
[2024-05-19 08:52] LABS: Percent Iron Saturation 46 % (20-50)
[2024-05-19 08:55] LABS: Prostate Specific Antigen 0.6 ng/mL (< OR = 4.0)
[2024-05-25 15:18] LABS: Testosterone Free 79.4 pg/mL (35.0-155.0); Testosterone Total 475 ng/dL (250-1100)
== END 2024-05-19 07:17 | disposition home or self-care (01) ==
LOC: ANHLAB 07:17
PROVIDERS: PCP Family Medicine; Visit Provider Family Medicine
DX: Z00.00 Encounter for general adult medical examination without abnormal findings (principal); Z13.220 Encounter for screening for lipoid disorders; Z12.5 Encounter for screening for malignant neoplasm of prostate; D64.9 Anemia, unspecified; I10 Essential (primary) hypertension; E78.5 Hyperlipidemia, unspecified
CPT/HCPCS: 36415; 80048; 80061; 80076; 82607; 82728; 83540; 83550; 84153; 84402; 84403; 85025; G0103